=== PATIENT | female | born 1970 | race Two or more races ===

== ENCOUNTER 2020-03-24 19:25 | Emergency (ER) | payer OTHER ==
[~2020-03-24] VITALS: Ht 170.2 cm; Wt 109.1 kg
[2020-03-24] MEDS ORDERED: HYDR-1475 PO (19:30)
[2020-03-24 21:50] LABS: BASOPHILS % (AUTO) 0.6 % (0.0-2.0); EOSINOPHILS % (AUTO) 1.5 % (1.0-6.0); HEMATOCRIT 44.1 % (36-46); HEMOGLOBIN 14.5 g/dL (12.0-16.0); LYMPHOCYTES # (AUTO) 2.6 K/uL (1.0-4.8); LYMPHOCYTES % (AUTO) 34.5 % (22.0-44.0); MEAN CORPUSCULAR HEMOGLOBIN 31.3 pg (26.0-34.0); MEAN CORPUSCULAR HGB CONC 32.8 G/dL (31.0-37.0); MEAN CORPUSCULAR VOLUME 95 fL (80-100); MONOCYTES # (AUTO) 0.4 K/uL (0.1-1.0); MONOCYTES % (AUTO) 4.9 % (2.0-9.0); NEUTROPHILS # (AUTO) 4.4 K/uL (1.8-7.7); NEUTROPHILS % (AUTO) 58.5 % (40.0-70.0); PLATELET COUNT (AUTO) 237 K/uL (150-450); RED BLOOD CELL COUNT(AUTO) 4.62 MIL/uL (4.00-5.20); RED CELL DISTRIBUTION WIDTH 13.5 % (11.5-14.5)
[2020-03-24 21:56] LABS: ALANINE AMINOTRANSFERASE 123 U/L (12-78); ALKALINE PHOSPHATASE 120 U/L (46-116); ANION GAP 6 mmol/L (8-16); ASPARTATE AMINOTRANSFERASE 211 U/L (15-37); BILIRUBIN,TOTAL 0.3 mg/dL (0.1-1.0); CARBON DIOXIDE 29 mmol/L (22-29); CHLORIDE 101 mmol/L (98-107); CREATININE 0.89 mg/dL (0.60-1.30); GLOMERULAR FILTR. RATE CALC > 60 mL/min (>60); HCG,QUANTITATIVE < 1 mIU/mL (0-6); LIPASE 317 U/L (73-393); POTASSIUM 4.7 mmol/L (3.5-5.1); SODIUM SERUM 136 mmol/L (136-145); TOTAL PROTEIN, SERUM 8.3 g/dL (6.4-8.2); UREA NITROGEN, BLOOD 6 mg/dL (7-18)
[2020-03-24 22:01] LABS: GLUCOSE,RANDOM 452 mg/dL (70-110)
[2020-03-24] MEDS ORDERED: SODIUM CHLORIDE 0.9% 1,000 ML IV ONE (22:45)
[2020-03-24] MEDS ORDERED: INSULIN REGULAR, HUMAN 100 UNITS/ML IVP ONE (23:00)
[2020-03-25 00:52] LABS: GLUCOSE,POINT OF CARE 317 MG/DL (70-110)
[2020-03-25] MEDS ORDERED: ASPIRIN 81 MG CHEWABLE TABLET PO ONE (01:15)
[2020-03-25] MEDS ORDERED: INSULIN REGULAR, HUMAN 100 UNITS/ML IVP ONE (02:15)
[2020-03-25 02:21] LABS: GLUCOSE,POINT OF CARE 308 MG/DL (70-110)
[2020-03-25 03:47] VITALS: BP 143/89
[2020-03-25 03:47] LABS: GLUCOSE,POINT OF CARE 262 MG/DL (70-110)
== END 2020-03-25 04:02 | disposition home or self-care (01) ==
LOC: EMS 19:25
DX: E11.65 Type 2 diabetes mellitus with hyperglycemia (principal); R07.89 Other chest pain; F10.10 Alcohol abuse, uncomplicated; I10 Essential (primary) hypertension; F17.210 Nicotine dependence, cigarettes, uncomplicated; Z88.0 Allergy status to penicillin; Z79.899 Other long term (current) drug therapy
CPT/HCPCS: 36415; 71045; 80053; 82962; 83690; 84484; 84702; 85025; 93005; 96361; 96374; 96375; 99285; G0480; J1815 ×2; J7030

== ENCOUNTER 2021-04-25 15:25 | Emergency (ER) | payer OTHER ==
[~2021-04-25] VITALS: Ht 170.2 cm; Wt 122.7 kg
[~2021-04-25 15:25] MED LIST: CEPH-582 PO
[2021-04-25] MEDS ORDERED: METF-960 PO (15:33)
[2021-04-25] MEDS ORDERED: MULT-1387 PO (15:45)
[2021-04-25] MEDS ORDERED: HYDR25TA PO (15:45)
[2021-04-25] MEDS ORDERED: FOLI-130 PO (15:45)
[2021-04-25] MEDS ORDERED: ATOR40TA71 PO (15:45)
[2021-04-25] MEDS ORDERED: INSULIN REGULAR, HUMAN 100 UNITS/ML IVP ONE ×2 (15:45→20:45)
[2021-04-25] MEDS ORDERED: ONDANSETRON HCL 4 MG/2 ML VIAL IVP ONE (15:45)
[2021-04-25] MEDS ORDERED: INSU100I26 SQ (15:45)
[2021-04-25] MEDS ORDERED: SODIUM CHLORIDE 0.9% 1,000 ML IV ONE (15:45)
[2021-04-25] MEDS ORDERED: THIA100T78 PO (15:45)
[2021-04-25 16:03] LABS: BASOPHILS % (AUTO) 0.7 % (0.0-2.0); EOSINOPHILS % (AUTO) 0.4 % (1.0-6.0); HEMATOCRIT 45.1 % (36-46); HEMOGLOBIN 14.9 g/dL (12.0-16.0); LYMPHOCYTES # (AUTO) 2.8 K/uL (1.0-4.8); LYMPHOCYTES % (AUTO) 29.8 % (22.0-44.0); MEAN CORPUSCULAR HEMOGLOBIN 31.4 pg (26.0-34.0); MEAN CORPUSCULAR VOLUME 95 fL (80-100); MONOCYTES # (AUTO) 0.5 K/uL (0.1-1.0); MONOCYTES % (AUTO) 5.6 % (2.0-9.0); NEUTROPHILS # (AUTO) 5.9 K/uL (1.8-7.7); NEUTROPHILS % (AUTO) 63.5 % (40.0-70.0); PLATELET COUNT (AUTO) 226 K/uL (150-450); RED BLOOD CELL COUNT(AUTO) 4.75 MIL/uL (4.00-5.20); RED CELL DISTRIBUTION WIDTH 13.7 % (11.5-14.5)
[2021-04-25 16:21] LABS: ALANINE AMINOTRANSFERASE 159 U/L (12-78); ALKALINE PHOSPHATASE 107 U/L (46-116); ANION GAP 14 mmol/L (8-16); ASPARTATE AMINOTRANSFERASE 211 U/L (15-37); BILIRUBIN,TOTAL 0.6 mg/dL (0.1-1.0); CARBON DIOXIDE 22 mmol/L (22-29); CHLORIDE 94 mmol/L (98-107); CREATININE 0.93 mg/dL (0.60-1.30); GLOMERULAR FILTR. RATE CALC > 60 mL/min (>60); LIPASE 237 U/L (73-393); POTASSIUM 3.3 mmol/L (3.5-5.1); SODIUM SERUM 130 mmol/L (136-145); TOTAL PROTEIN, SERUM 8.3 g/dL (6.4-8.2); UREA NITROGEN, BLOOD 9 mg/dL (7-18)
[2021-04-25 16:24] LABS: GLUCOSE,RANDOM 435 mg/dL (70-110)
[2021-04-25] MEDS ORDERED: PB/HYOSCY/ATR/SCOP/LIDO/MAALOX 55 ML BOTTLE PO ONE (17:00)
[2021-04-25] MEDS ORDERED: POTASSIUM CHLORIDE 20 MEQ ER TABLET PO ONE (17:15)
[2021-04-25 19:20] LABS: GLUCOSE,POINT OF CARE 322 MG/DL (70-110)
[2021-04-25 20:45] VITALS: BP 147/89
== END 2021-04-25 20:15 | disposition home or self-care (01) ==
LOC: EMS 15:31
DX: R10.13 Epigastric pain (principal); R10.12 Left upper quadrant pain; E11.9 Type 2 diabetes mellitus without complications; F10.129 Alcohol abuse with intoxication, unspecified; F15.10 Other stimulant abuse, uncomplicated; I10 Essential (primary) hypertension; F17.210 Nicotine dependence, cigarettes, uncomplicated; Y90.3 Blood alcohol level of 60-79 mg/100 ml; Z88.0 Allergy status to penicillin; Z79.84 Long term (current) use of oral hypoglycemic drugs; Z79.899 Other long term (current) drug therapy
CPT/HCPCS: 76700; 80053; 82962; 83690; 85025; 93005; 96361; 96374; 96375; 96376; 99285; G0480; J1815; J2405; J7030; 82948

== ENCOUNTER 2023-06-29 20:00 | Emergency (ER) | payer OTHER ==
[~2023-06-29] VITALS: Ht 170.2 cm; Wt 95.5 kg
[~2023-06-29 20:00] MED LIST changes: +ATOR40TA71 PO; -CEPH-582 PO; +FOLI-130 PO; +HYDR25TA PO; +INSU100I26 SQ; +METF-1211 PO; +MULT-1387 PO; +THIA100T78 PO
[2023-06-29 20:07] VITALS: TEMP 98.4
[2023-06-29] MEDS ORDERED: GABA-1181 PO (20:09)
[2023-06-29] MEDS ORDERED: DULA0.75 SQ (20:09)
[2023-06-29 20:45] LABS: BASOPHILS % (AUTO) 0.6 % (0.0-2.0); EOSINOPHILS % (AUTO) 1.4 % (1.0-6.0); HEMATOCRIT 47.1 % (36-46); HEMOGLOBIN 15.4 g/dL (12.0-16.0); LYMPHOCYTES # (AUTO) 3.6 K/uL (1.0-4.8); MEAN CORPUSCULAR HEMOGLOBIN 30.5 pg (26.0-34.0); MEAN CORPUSCULAR HGB CONC 32.7 G/dL (31.0-37.0); MEAN CORPUSCULAR VOLUME 93 fL (80-100); MONOCYTES # (AUTO) 0.5 K/uL (0.1-1.0); MONOCYTES % (AUTO) 4.3 % (2.0-9.0); NEUTROPHILS # (AUTO) 6.9 K/uL (1.8-7.7); NEUTROPHILS % (AUTO) 61.7 % (40.0-70.0); PLATELET COUNT (AUTO) 254 K/uL (150-450); RED BLOOD CELL COUNT(AUTO) 5.06 MIL/uL (4.00-5.20); RED CELL DISTRIBUTION WIDTH 13.7 % (11.5-14.5)
[2023-06-29 20:55] LABS: ANION GAP 7 mmol/L (8-16); CALCIUM, TOTAL 9.4 mg/dL (8.8-10.5); CARBON DIOXIDE 27 mmol/L (22-29); CHLORIDE 101 mmol/L (98-107); CREATININE 0.95 mg/dL (0.60-1.30); GLOMERULAR FILTR. RATE CALC > 60 mL/min (>60); GLUCOSE,RANDOM 181 mg/dL (70-110); POTASSIUM 3.6 mmol/L (3.5-5.1); SODIUM SERUM 135 mmol/L (136-145)
[2023-06-29 21:01] LABS: ALANINE AMINOTRANSFERASE 48 U/L (12-78); ALBUMIN 3.1 g/dL (3.4-5.0); ALKALINE PHOSPHATASE 120 U/L (46-116); AMYLASE 69 U/L (25-115); ASPARTATE AMINOTRANSFERASE 33 U/L (15-37); BILIRUBIN,TOTAL 0.7 mg/dL (0.1-1.0); LIPASE 74 U/L (16-77); TOTAL PROTEIN, SERUM 8.6 g/dL (6.4-8.2)
[2023-06-29] MEDS ORDERED: SODIUM CHLORIDE 0.9% 1,000 ML IV ONE (21:15)
[2023-06-29 21:18] LABS: HCG,QUANTITATIVE 1 mIU/mL (0-6)
[2023-06-29] MEDS ORDERED: HYDROmorphone HCL 2 MG/ML SYRINGE IVP ONE (22:45)
[2023-06-29] MEDS ORDERED: METOCLOPRAMIDE HCL 5 MG/ML 2 ML VIAL IVP ONE (22:45)
[2023-06-29] MEDS ORDERED: SODIUM CHLORIDE 0.9% 100 ML ONE (23:16)
[2023-06-29] MEDS ORDERED: IOHEXOL 350 MG/ML 100 ML VIAL ONE (23:16)
[2023-06-30 00:30] VITALS: BP 140/95; PULSE 82; RESP 19
[2023-06-30] MEDS ORDERED: KETOROLAC TROMETHAMINE 30 MG/ML VIAL IVP ONE (01:00)
[2023-06-30 01:39] LABS: APPEARANCE,URINE CLEAR (CLEAR); BILIRUBIN,URINE NEGATIVE (NEGATIVE); GLUCOSE, URINE (UA) NEGATIVE (NEGATIVE); KETONES,URINE NEGATIVE (NEGATIVE); LEUKOCYTE ESTERASE ,URINE NEGATIVE (NEGATIVE); NITRATE,URINE NEGATIVE (NEGATIVE); OCCULT BLOOD,URINE NEGATIVE (NEGATIVE); PROTEIN,URINE TRACE mg/dL (NEGATIVE)
[2023-06-30] MEDS ORDERED: ONDA-104 PO (01:46)
[2023-06-30] MEDS ORDERED: IBUP-2280 PO (01:46)
== END 2023-06-30 03:00 | disposition home or self-care (01) ==
LOC: EMS 20:00
DX: R10.2 Pelvic and perineal pain (principal); F10.20 Alcohol dependence, uncomplicated; E11.9 Type 2 diabetes mellitus without complications; I10 Essential (primary) hypertension; G43.909 Migraine, unspecified, not intractable, without status migrainosus; F17.210 Nicotine dependence, cigarettes, uncomplicated; F15.90 Other stimulant use, unspecified, uncomplicated; Z88.0 Allergy status to penicillin; Y90.9 Presence of alcohol in blood, level not specified
CPT/HCPCS: 99285; 74177; 96374; 96361; 96375 ×2; 80053; 81003; 82150; 83690; 84702; 85025; 36415; J1170; J2765; Q9967; J7030; J7050; J1885

== ENCOUNTER 2024-12-24 20:29 | Emergency (ER) | payer OTHER ==
[~2024-12-24] VITALS: Ht 170.2 cm; Wt 131.8 kg
[~2024-12-24 20:29] MED LIST changes: +DULA0.75 SQ; +GABA-1181 PO; +IBUP-2280 PO; +ONDA-104 PO
[2024-12-24 20:35] VITALS: TEMP 97.5
[2024-12-24 21:27] LABS: BASOPHILS % (AUTO) 1.1 % (0.0-2.0); EOSINOPHILS % (AUTO) 1.5 % (1.0-6.0); HEMATOCRIT 48.3 % (36-46); LYMPHOCYTES # (AUTO) 2.7 K/uL (1.0-4.8); LYMPHOCYTES % (AUTO) 36.7 % (22.0-44.0); MEAN CORPUSCULAR HEMOGLOBIN 31.6 pg (26.0-34.0); MEAN CORPUSCULAR HGB CONC 33.2 G/dL (31.0-37.0); MEAN CORPUSCULAR VOLUME 95 fL (80-100); MONOCYTES # (AUTO) 0.6 K/uL (0.1-1.0); MONOCYTES % (AUTO) 7.9 % (2.0-9.0); NEUTROPHILS # (AUTO) 3.9 K/uL (1.8-7.7); NEUTROPHILS % (AUTO) 52.8 % (40.0-70.0); PLATELET COUNT (AUTO) 188 K/uL (150-450); RED BLOOD CELL COUNT(AUTO) 5.07 MIL/uL (4.00-5.20); RED CELL DISTRIBUTION WIDTH 13.7 % (11.5-14.5); WHITE BLOOD COUNT (AUTO) 7.5 K/uL (4.5-11.0)
[2024-12-24 21:31] LABS: CALCIUM, TOTAL 9.3 mg/dL (8.8-10.5); CREATININE 1.06 mg/dL (0.60-1.30); POTASSIUM 4.4 mmol/L (3.5-5.1)
[2024-12-24 21:39] LABS: ALBUMIN 2.9 g/dL (3.4-5.0); BILIRUBIN,DIRECT 0.5 mg/dL (0.00-0.20); BILIRUBIN,TOTAL 1.2 mg/dL (0.1-1.0); TOTAL PROTEIN, SERUM 8.2 g/dL (6.4-8.2)
[2024-12-24] MEDS: ACETAMINOPHEN 325 MG TABLET PO ONE (22:36)
[2024-12-24] MEDS: SODIUM CHLORIDE 0.9% 1,000 ML IV ONE (22:36)
[2024-12-24] MEDS: FAMOTIDINE 20 MG/2 ML VIAL IVP ONE (22:37)
[2024-12-24] MEDS: METOCLOPRAMIDE HCL 5 MG/ML 2 ML VIAL IVP ONE (22:37)
[2024-12-24] MEDS: MAG HYDROX/ALUMINUM HYD/SIMETH 30 ML SUSPENSION UDCUP PO ONE (22:37)
[2024-12-24] MEDS: DiphenhydrAMINE HCL 50 MG/ML VIAL IVP ONE (22:37)
[2024-12-24 22:39] LABS: MAGNESIUM 1.7 mg/dL (1.80-2.40)
[2024-12-25 00:46] VITALS: BP 128/87; PULSE 72; RESP 18; O2SAT 98
== END 2024-12-25 00:56 | disposition home or self-care (01) ==
LOC: EMS 20:29
DX: G43.909 Migraine, unspecified, not intractable, without status migrainosus (principal); R10.13 Epigastric pain; F10.20 Alcohol dependence, uncomplicated; E11.65 Type 2 diabetes mellitus with hyperglycemia; I10 Essential (primary) hypertension; F17.210 Nicotine dependence, cigarettes, uncomplicated; Z79.1 Long term (current) use of non-steroidal anti-inflammatories (NSAID); Z79.899 Other long term (current) drug therapy; Z88.0 Allergy status to penicillin
CPT/HCPCS: 99284; 96374; 96375; 96361; 80048; 80076; 83690; 83735; 85025; 36415; G0480; J1200; J3490; J2765; J7030